=== PATIENT | male | born 1955 | race Caucasian/White ===

== ENCOUNTER 2020-02-16 10:30 | Emergency (ER) | payer MEDICAID ==
[~2020-02-16] VITALS: Ht 170.2 cm; Wt 78.0 kg
[2020-02-16 12:54] VITALS: BP 125/82
== END 2020-02-16 13:34 | disposition home or self-care (01) ==
LOC: EDBD 10:30 → ER 10:30
DX: R33.9 Retention of urine, unspecified (principal); I10 Essential (primary) hypertension
CPT/HCPCS: 51702; 99284